=== PATIENT | female | born 1995 | race Caucasian/White ===

== ENCOUNTER 2017-08-01 20:15 | Emergency (ER) | payer SELFPAY ==
[~2017-08-01] VITALS: Ht 160 cm; Wt 94.3 kg
[2017-08-01 20:19] VITALS: Ht 160 cm; Wt 94.3 kg
[2017-08-01] MEDS ORDERED: ONDANSETRON (ODT) 4 MG TAB ODT STA (20:37)
--- NOTE | 2017-08-01 20:45 | ERD ---
ER Documentation Chief Complaint Chief Complaint PT IN C/O "STOMACH PAIN AND N/V/D X 1 DAY" HPI 22-year-old female has chief complaint of nausea, vomiting and diarrhea starting this morning. The patient has a history of about 4 episodes nonbloody non-as well as 5 episodes of diarrhea that are nonbloody non-mucousy. She describes mid abdominal pain that is nonradiating, moderate, cramping like. Patient denies fevers or chills, pelvic pain, vaginal bleeding. Denies sick contacts at home. She denies recent travel associated with this. ROS All systems reviewed and are negative except as per history of present illness. Medications Home Meds Active Scripts Acetaminophen* (Tylophen*) 500 Mg Capsule, 1 CAP PO Q6H Y for PAIN AND OR ELEVATED TEMP, #20 CAP Prov:WAYEN WEST PA-C 08/01/17 Ranitidine Hcl* (Zantac*) 150 Mg Tablet, 150 MG PO BID Y for EPIGASTRIC PAIN, # 10 TAB Prov:WAYNE WEST PA-C 08/01/17 Ondansetron (Ondansetron Odt) 4 Mg Tab.rapdis, 4 MG PO Q6H Y for NAUSEA AND/OR VOMITING, #10 TAB Prov:WAYNE WEST PA-C 08/01/17 PMhx/Soc Medical and Surgical Hx: pt denies Medical Hx Hx Alcohol Use: No Hx Substance Use: No Hx Tobacco Use: No Physical Exam Vitals Vital Signs Date Time Temp Pulse Resp B/P Pulse Ox O2 Delivery O2 Flow Rate FiO2 08/01/17 20:19 99.1 127 18 133/77 99 Physical Exam General: Well-developed, well-nourished. The patient appears in no acute distress. HEENT: Head is normocephalic, atraumatic. No scleral icterus. Neck: Supple. Nontender. Lungs: Clear to auscultation. Normal air movement. Heart: Regular rate and rhythm. S1 and S2 are normal. No murmurs, gallops, or rubs. Abdomen: Soft, mid abdomen is tender, there is no rebound pain, no guarding, no hepatosplenomegaly. Negative Foley sign, no McBurney's tenderness, no peritoneal signs, nondistended. Bowel sounds are normoactive. Extremities: No clubbing or cyanosis. Normal pulses. Moving extremities x 4. No weakness. Neurologic: Alert and oriented 3. No focal deficits. Skin: Normal turgor. No rash or lesions. Result Diagram: 08/01/17 2100 08/01/17 2100 Results 24 hrs Laboratory Tests Test 08/01/17 20:55 08/01/17 21:00 Urine Color YELLOW Urine Clarity CLEAR Urine pH 7.0 Urine Specific [place] 1.025 Urine Ketones NEGATIVEmg/dL Urine Nitrite NEGATIVEmg/dL Urine Bilirubin NEGATIVEmg/dL Urine Urobilinogen 2+mg/dL Urine Leukocyte Esterase NEGATIVELeu/ul Urine Microscopic RBC 8/HPF Urine Microscopic WBC 1/HPF Urine Squamous Epithelial Cells FEW/HPF Urine Hemoglobin 1+mg/dL Urine Glucose NEGATIVEmg/dL Urine Total Protein NEGATIVEmg/dl White Blood Count 12.810^3/ul Red Blood Count 4.5010^6/ul Hemoglobin 14.4g/dl Hematocrit 40.9% Mean Corpuscular Volume 90.9fl Mean Corpuscular Hemoglobin 32.0pg Mean Corpuscular Hemoglobin Concent 35.2g/dl Red Cell Distribution Width 11.9% Platelet Count 84069^3/UL Mean Platelet Volume 9.7fl Neutrophils % 74.6% Lymphocytes % 20.0% Monocytes % 4.8% Eosinophils % 0.3% Basophils % 0.2% Nucleated Red Blood Cells % 0.0/100WBC Neutrophils # 9.510^3/ul Lymphocytes # 2.610^3/ul Monocytes # 0.610^3/ul Eosinophils # 0.010^3/ul Basophils # 0.010^3/ul Nucleated Red Blood Cells # 0.010^3/ul Sodium Level 144mmol/L Potassium Level 3.6mmol/L Chloride Level 106mmol/L Carbon Dioxide Level 24mmol/L Anion Gap 18 Blood Urea Nitrogen 15mg/dl Creatinine 0.71mg/dl Glucose Level 94mg/dl Calcium Level 9.3mg/dl Total Bilirubin 1.1mg/dl Direct Bilirubin 0.00mg/dl Indirect Bilirubin 1.1mg/dl Aspartate Amino Transf (AST/SGOT) 24IU/L Alanine Aminotransferase (ALT/SGPT) 30IU/L Alkaline Phosphatase 89IU/L Total Protein 7.8g/dl Albumin 4.4g/dl Globulin 3.40g/dl Albumin/Globulin Ratio 1.29 Lipase 125U/L Serum HCG, Qualitative NEGATIVE Current Medications Medications (Trade) Dose Ordered Sig/Myla Route PRN Reason Start Time Stop Time Status Last Admin Dose Admin Ondansetron HCl (Zofran Odt) 4 mg ONCE STAT ODT 08/01/17 20:37 08/01/17 20:38 DC 08/01/17 21:04 Famotidine (Pepcid) 20 mg ONCE ONCE PO 08/01/17 21:00 08/01/17 21:01 DC 08/01/17 21:04 Acetaminophen (Tylenol Tab) 650 mg ONCE ONCE PO 08/01/17 22:00 08/01/17 22:01 DC 08/01/17 21:39 Procedures/MDM 22-year-old female comes to the emergency department with abdominal pain, patient's symptoms include nausea, vomiting diarrhea with mid abdominal pain. I suspect the patient presents with acute gastroenteritis, no evidence of hepatitis, acute hepatobiliary process, acute appendicitis, bowel obstruction, intra-abdominal abscess or diverticulitis. Labs and urine are normal at this time and she will be discharged home with Tylenol, Zantac and Zofran. Departure Diagnosis: Primary Impression: Nausea vomiting and diarrhea Additional Impression: Abdominal pain Condition: Good WAYNE WEST PA-C Aug 01, 2017 20:44
[2017-08-01] MEDS ORDERED: FAMOTIDINE 20 MG TAB PO ONE (21:00)
[2017-08-01 21:08] LABS: BASOPHILS % 0.2 % (0.0-2.0); EOSINOPHILS % 0.3 % (0.0-7.0); HEMATOCRIT 40.9 % (37.0-47.0); HEMOGLOBIN 14.4 g/dl (12.0-16.0); LYMPHOCYTES # 2.6 10^3/ul (0.8-2.9); MEAN CORPUSCULAR HGB CONC 35.2 g/dl (32.0-37.0); MEAN CORPUSCULAR VOLUME 90.9 fl (82.0-101.0); MEAN PLATELET VOLUME 9.7 fl (7.4-10.4); MONOCYTE # 0.6 10^3/ul (0.3-0.9); MONOCYTES % 4.8 % (0.0-11.0); NEUTROPHIL # 9.5 10^3/ul (1.6-7.5); NEUTROPHILS % 74.6 % (39.0-77.0); PLATELET COUNT 226 10^3/UL (140-415); RED CELL DISTRIBUTION WIDTH 11.9 % (11.5-14.5); WHITE BLOOD COUNT 12.8 10^3/ul (4.8-10.8)
[2017-08-01 21:21] LABS: ADD UMIC YES; UR ASCORBIC ACID NEGATIVE (NEGATIVE); UR BILIRUBIN (Dip) NEGATIVE (NEGATIVE); UR BLOOD (Dip) 1+ mg/dL (NEGATIVE); UR CLARITY CLEAR (CLEAR); UR COLOR YELLOW (YELLOW); UR GLUCOSE (Dip) NEGATIVE (NEGATIVE); UR KETONES (Dip) NEGATIVE (NEGATIVE); UR LEUKOCYTE ESTERASE (Dip) NEGATIVE Leu/ul (NEGATIVE); UR NITRITE (Dip) NEGATIVE (NEGATIVE); UR RBC 8 /HPF (0-5); UR SPECIFIC GRAVITY (Dip) 1.025 (1.003-1.030); UR SQUAMOUS EPITHELIAL CELL FEW /HPF (FEW); UR TOTAL PROTEIN (Dip) NEGATIVE (NEGATIVE); UR UROBILINOGEN (Dip) 2+ mg/dL (NEGATIVE)
[2017-08-01 21:27] LABS: ALBUMIN 4.4 g/dl (3.3-4.9); ALBUMIN/GLOBULIN RATIO 1.29; BILIRUBIN,INDIRECT 1.1 mg/dl (0-1.1); BILIRUBIN,TOTAL 1.1 mg/dl (0.2-1.3); CALCIUM 9.3 mg/dl (8.4-10.2); CREATININE 0.71 mg/dl (0.44-1.00); POTASSIUM 3.6 mmol/L (3.5-5.1); TOTAL PROTEIN 7.8 g/dl (6.1-8.1)
[2017-08-01] MEDS ORDERED: ACETAMINOPHEN 325 MG TAB PO ONE (22:00)
--- NOTE | 2017-08-01 22:32 | RADRPT ---
PROCEDURE: CT Abdomen and Pelvis without contrast. CLINICAL INDICATION: Abdominal pain TECHNIQUE: CT of the abdomen and pelvis was performed on a multi-detector scanner without IV contr ast. Coronal and sagittal images were reformatted from the axial data set. One or more of the foll owing dose reduction techniques were used: automated exposure control, adjustment of the mA and/or k V according to patient size, use of iterative reconstruction technique. DICOM images are available. CTDI = 18.87 mGy. DLP = 1108.84 mGy-cm. COMPARISON: None. FINDINGS: The lung bases are clear. The heart size is normal, without pericardial effusion. The liver demons trates mild steatosis, without evidence of focal mass. Gallbladder, biliary tree, pancreas, spleen, adrenal glands and kidneys are unremarkable. No urolithiasis or obstructive uropathy is identified. The stomach is grossly unremarkable. The aorta is of normal caliber. There is no retroperitoneal lymphadenopathy. The maria r hepatis reg ion is clear. No bowel obstruction, free intraperitoneal air or abscess is identified. The appendix is well visual ized and normal. There is no diverticulosis, diverticulitis or colitis. Urinary bladder, uterus and adnexa are grossly unremarkable. No pelvic mass, free fluid or lymphadenopathy is identified. The surrounding osseous structures are unremarkable. No osteolytic or osteoblastic lesion is detect ed. IMPRESSION: 1. There is mild hepatic steatosis. 2. No mass, lymphadenopathy, or focal acute inflammatory process is identified. RPTAT: HDWR .Triston Durand MD, Date Time Electronically viewed and signed by .Triston Durand MD, MD on 08/01/2017 22:32 .R/
[2017-08-01] MEDS ORDERED: ACET500C5 PO (22:41)
[2017-08-01] MEDS ORDERED: ONDA4TAB14 PO (22:41)
[2017-08-01] MEDS ORDERED: RANI150T9 PO (22:41)
[2017-08-01 22:56] VITALS: BP 133/75; PULSE 96; RESP 16; TEMP 98.8
== END 2017-08-01 22:57 | disposition home or self-care (01) ==
LOC: FTE 20:15
DX: R11.2 Nausea with vomiting, unspecified (principal); R19.7 Diarrhea, unspecified; R10.2 Pelvic and perineal pain
CPT/HCPCS: 36415; 74176; 80053; 81001; 83690; 84703; 85025

== ENCOUNTER 2017-10-04 11:32 | Inpatient (IN) | END 2017-10-04 15:30 | disposition home or self-care (01) | DRG 343 ==